=== PATIENT | female | born 1940 | race Native Hawaiian/Other Pacific Islander ===

== ENCOUNTER 2017-07-18 01:32 | Inpatient (IN) | payer MEDICARE ==
[2017-07-18 01:49] VITALS: BMI 25.0
[2017-07-18 02:14] LABS: BASO # 0.1 K/uL (0.0-0.2); BASO % 1.1 % (0.0-2.0); EOS # 0.2 K/uL (0.0-0.7); EOS % 2.1 % (0.0-4.0); HEMOGLOBIN 13.7 g/dL (12.0-16.0); LYMPH # 1.1 K/uL (1.0-4.3); LYMPH % 14.3 % (20.0-40.0); MEAN CELL VOLUME 95.1 fl (81.0-99.0); MEAN CORPUSCULAR HEMOGLOBIN 31.9 pg (27.0-31.0); MEAN CORPUSCULAR HGB CONC 33.6 g/dL (33.0-37.0); MEAN PLATELET VOLUME 8.3 fl (7.2-11.7); MONO # 0.6 K/uL (0.0-0.8); MONO % 7.3 % (0.0-10.0); NEUT # 5.8 K/uL (1.8-7.0); NEUT % 75.2 % (50.0-75.0); RBC 4.3 Mil/uL (3.80-5.20); RED CELL DISTRIBUTION WIDTH 14.3 % (11.5-14.5); WHITE BLOOD COUNT 7.7 K/uL (4.8-10.8)
[2017-07-18 02:24] LABS: ALB/GLOB RATIO 1.4 (1.0-2.1); ALBUMIN 4.6 g/dL (3.5-5.0); CALCIUM 10.2 mg/dL (8.4-10.2)
[2017-07-18 02:29] LABS: PARTIAL THROMBOPLASTIN TIME 33.1 Seconds (25.6-37.1); PROTHROMBIN TIME 10.5 Seconds (9.8-13.1)
--- NOTE | 2017-07-18 03:05 | CT ---
EXAM: CT Head Without Intravenous Contrast CLINICAL HISTORY: 77 years old, female; Pain; Headache TECHNIQUE: Axial computed tomography images of the head/brain without intravenous contrast. All CT scans at this facility use one or more dose reduction techniques, viz.: automated exposure control; ma/kV adjustment per patient size (including targeted exams where dose is matched to indication; i.e. head); or iterative reconstruction technique. Coronal and sagittal reformatted images were created and reviewed. COMPARISON: No relevant prior studies available. FINDINGS: Brain: There is mild diffuse cerebral atrophy present, consistent with this patient's age. No hemorrhage. No significant white matter disease. Ventricles: The ventricular system demonstrates mild diffuse compensatory enlargement. Bones/joints: Unremarkable. No acute fracture. Soft tissues: Unremarkable. Sinuses: There is minimal mucoperiosteal thickening in the ethmoid sinuses, consistent with chronic sinusitis. Mastoid air cells: Unremarkable as visualized. No mastoid effusion. IMPRESSION: No acute intracranial abnormality.
[2017-07-18] MEDS ORDERED: Enoxaparin 60 mg Syringe SC STA (03:13)
[2017-07-18] MEDS ORDERED: Digoxin 500 mcg/2ml (0.5 mg/2ml) Inj IVP ONE (03:34)
[2017-07-18] MEDS ORDERED: Digoxin 500 mcg/2ml (0.5 mg/2ml) Inj ONE (03:37)
[2017-07-18 03:47] VITALS: PULSE 108
--- NOTE | 2017-07-18 03:54 | ED PDOC ---
HPI: General Adult Time Seen by Provider: 07/18/17 01:35 Chief Complaint (Nursing): Dizziness/Lightheaded Chief Complaint (Provider): Dizziness/Lightheaded History Per: Patient History/Exam Limitations: no limitations Onset/Duration Of Symptoms: Other (Prior to arrival) Additional Complaint(s): 77 years old [place] female with history of hypertension and diabetes presents to the ED complaining of dizziness, nausea and vomiting prior to arrival. Patient reports she was getting ready for bed when she experienced room spinning sensation. She reports symptoms are resolved since arriving to the ED. Patient denies any chest pain, shortness of breath or cough. PMD: Sadiq Aguilera Past Medical History Reviewed: Historical Data, Nursing Documentation, Vital Signs Vital Signs: Last Vital Signs Temp 98.2 F 07/19/17 00:18 Pulse 102 H 07/19/17 03:52 Resp 18 07/19/17 00:18 BP 115/68 07/19/17 00:18 Pulse Ox 98 07/19/17 03:52 - Medical History PMH: HTN - Family History Family History: States: No Known Family Hx - Home Medications Home Medications: Ambulatory Orders Medication Instructions Recorded Amlodipine Besylate [Amlodipine 1 tab PO DAILY 01/10/14 Besylate] Atorvastatin Calcium [Atorvastatin 1 tab PO DAILY 01/10/14 Calcium] Dulaglutide [Trulicity] 1.5 mg SC QWK 07/18/17 Ergocalciferol [Drisdol 50,000 1 cap PO DAILY 07/18/17 Intl Units Cap] Metoprolol Tartrate [Lopressor] 100 mg PO BID 07/18/17 Vit B Cplx C No.13/Folic AC/D3 1 each PO DAILY 07/18/17 [Nephrocaps Qt Tablet] - Allergies Allergies/Adverse Reactions: Allergies Allergy/AdvReac Type Severity Reaction Status Date / Time No Known Allergies Allergy Verified 07/18/17 01:49 Review of Systems ROS Statement: Except As Marked, All Systems Reviewed And Found Negative Cardiovascular: Positive for: Light Headedness. Negative for: Chest Pain Respiratory: Negative for: Cough, Shortness of Breath Gastrointestinal: Positive for: Nausea, Vomiting Physical Exam - Reviewed Nursing Documentation Reviewed: Yes Vital Signs Reviewed: Yes - Physical Exam Appears: Positive for: Non-toxic, No Acute Distress Head Exam: Positive for: ATRAUMATIC, NORMOCEPHALIC Skin: Positive for: Normal Color, Warm, Dry Eye Exam: Positive for: Normal appearance, EOMI, PERRL ENT: Positive for: Normal ENT Inspection Neck: Positive for: Normal, Painless ROM, Supple Cardiovascular/Chest: Positive for: Tachycardia, Irregularly Irregular Respiratory: Positive for: Normal Breath Sounds. Negative for: Respiratory Distress Gastrointestinal/Abdominal: Positive for: Normal Exam, Soft. Negative for: Tenderness Extremity: Positive for: Normal ROM Neurologic/Psych: Positive for: Alert, Oriented - Laboratory Results Result Diagrams: 07/18/17 07:15 07/18/17 07:15 - ECG ECG Rhythm: Positive for: Atrial Fibrillation Rate: 102 O2 Sat by Pulse Oximetry: 98 (RA) Pulse Ox Interpretation: Normal - Critical Care Total Time (In Min): 30 Medical Decision Making Medical Decision Making: Time: 015 Initial Impression: 77 years old [place] female with dizziness, nausea and vomiting. Initial Plan: --CT Head w/o Contrast --EKG --CMP --CBC --PTT --PT --Chest X-Ray --NaCl 100 ml IV --Lanoxin 0.5 mg IVP --Reglan 10 mg IVPB --Toradol 10 mg IVP --Tylenol 325 mg ____ Time: [address] FINDINGS: Brain: There is mild diffuse cerebral atrophy present, consistent with this patient's age. No hemorrhage. No significant white matter disease. Ventricles: The ventricular system demonstrates mild diffuse compensatory enlargement. Bones/joints: Unremarkable. No acute fracture. Soft tissues: Unremarkable. Sinuses: There is minimal mucoperiosteal thickening in the ethmoid sinuses, consistent with chronic sinusitis. Mastoid air cells: Unremarkable as visualized. No mastoid effusion. IMPRESSION: No acute intracranial abnormality. Dictated By: Camila Rodriguez MD Dictated Date/Time: 07/18/17304 Signed By: Camila Harry MD Date Signed: 304 Transcribed By: ALLEY Transcribe Date/Time : 07/18/17304 HOLANMD/VRD Time: 332 Labs reviewed show no clinically sig abnormalities. Patient's presentation is c /w A Fib which is new onset per daughter and patient. Patient admitted as discussed with Dr. Rick who is covering Dr Aguilera Scribe Attestation: Documented by Rita Lindo, acting as a scribe for Vinicius Neumann MD. Provider Scribe Attestation: All medical record entries made by the Scribe were at my direction and personally dictated by me. I have reviewed the chart and agree that the record accurately reflects my personal performance of the history, physical exam, medical decision making, and the department course for this patient. I have also personally directed, reviewed, and agree with the discharge instructions and disposition. Disposition - Clinical Impression Clinical Impression: Atrial fibrillation with RVR - Patient ED Disposition Is Patient to be Admitted: Yes Discussed With : Maicol Rick - Disposition Disposition Time: 03:30 Condition: FAIR
[2017-07-18 08:44] LABS: BASO # 0.1 K/uL (0.0-0.2); EOS % 0.6 % (0.0-4.0); HEMOGLOBIN 13.5 g/dL (12.0-16.0); LYMPH # 1.6 K/uL (1.0-4.3); LYMPH % 23.3 % (20.0-40.0); MEAN CELL VOLUME 93.8 fl (81.0-99.0); MEAN CORPUSCULAR HEMOGLOBIN 32.3 pg (27.0-31.0); MEAN CORPUSCULAR HGB CONC 34.4 g/dL (33.0-37.0); MEAN PLATELET VOLUME 8.6 fl (7.2-11.7); MONO # 0.6 K/uL (0.0-0.8); MONO % 8.5 % (0.0-10.0); NEUT # 4.5 K/uL (1.8-7.0); NEUT % 66.6 % (50.0-75.0); RBC 4.19 Mil/uL (3.80-5.20); RED CELL DISTRIBUTION WIDTH 13.8 % (11.5-14.5); WHITE BLOOD COUNT 6.8 K/uL (4.8-10.8)
[2017-07-18] MEDS ORDERED: AMLODIPINE BESYLATE PO SCH (09:00)
[2017-07-18] MEDS ORDERED: Ergocalciferol 50,000 Intl Units Cap PO SCH ×2 (09:00→11:15)
[2017-07-18] MEDS ORDERED: Enoxaparin 40 mg Syringe SC SCH (09:00)
[2017-07-18] MEDS: Multivitamin Vitamin B Complex (Nephro-Vite) Tab PO SCH (09:01)
[2017-07-18 09:06] LABS: TROPONIN I 0.019 ng/mL (0.00-0.120)
[2017-07-18 09:10] LABS: T3 UPTAKE 35.9 % (23.0-41.0); T4 9.53 ug/dl (5.5-11.0)
[2017-07-18 09:16] LABS: ALB/GLOB RATIO 1.2 (1.0-2.1); ALBUMIN 4.1 g/dL (3.5-5.0); CALCIUM 10.1 mg/dL (8.4-10.2)
[2017-07-18 09:24] LABS: T3 0.89 nmol/L (1.49-2.60)
--- NOTE | 2017-07-18 09:45 | RAD ---
HISTORY: chest pain COMPARISON: No prior. FINDINGS: LUNGS: No active pulmonary disease. PLEURA: No significant pleural effusion identified, no pneumothorax apparent. CARDIOVASCULAR: Normal. OSSEOUS STRUCTURES: No significant abnormalities. VISUALIZED UPPER ABDOMEN: Normal. OTHER FINDINGS: None. IMPRESSION: No active disease.
--- NOTE | 2017-07-18 11:26 | CARD ---
APPROVED REPORT EKG Measurement Heart [id number] <Conclusion> Atrial fibrillation with rapid ventricular response Septal infarct, age undetermined Abnormal ECG
--- NOTE | 2017-07-18 11:33 | HP ---
CHIEF COMPLAINT: Lightheaded and dizzy. HISTORY OF PRESENT ILLNESS: This is a 77-year-old female known case of diabetes and hypertension, who was having dizziness and lightheadedness, so the patient was brought to the emergency room where the patient was found to be in new onset of atrial fibrillation, so the patient was admitted for further management. REVIEW OF SYSTEMS: Positive for lightheadedness and dizziness. Review of systems otherwise is negative for headache, loss of consciousness, chest pain, shortness of breath, nausea, vomiting, diarrhea, constipation, any new joint or extremity pain. Review of systems of all other organ system is unremarkable. PAST MEDICAL HISTORY: Significant for hypertension. PAST SURGICAL HISTORY: Unremarkable. PERSONAL HISTORY: The patient is currently nonsmoker, nondrinker. No substance abuse. MEDICATIONS: The patient is on amlodipine 10 mg once a day, atorvastatin, ergocalciferol, metoprolol, and vitamin D. ALLERGIES: THE PATIENT IS NOT ALLERGIC TO ANY MEDICATIONS. FAMILY HISTORY: Noncontributory. PHYSICAL EXAMINATION: GENERAL: A well-built, well-nourished 77-year-old female, in no acute distress. VITAL SIGNS: Temperature 98.2, pulse 93, respirations 16, and blood pressure 125/73. HEENT: Pupils reacting to light. No JVD. No thyromegaly. No lymphadenopathy. No nystagmus. Normocephalic, atraumatic skull. HEART: S1 and S2, normal and regular. No significant murmur, gallop or rub is heard. LUNGS: Show good bilateral air exchange. No rales or rhonchi. ABDOMEN: Soft and nontender. No organomegaly. No fluid. Bowel sounds are plus and normal. EXTREMITIES: No edema. No calf swelling. No tenderness. No acute ischemia. CENTRAL NERVOUS SYSTEM: Essentially unchanged. There is no sign of any acute gross focal motor or sensory neurological deficit. DIAGNOSTIC DATA: Available diagnostic data reviewed. Telemetry monitoring does not reveal significant arrhythmias. WBC 6.8, hemoglobin 13.5, hematocrit 39.3, and platelets 174,000. PT 10.5, PTT 33.1, and INR is 1. Sodium 140, potassium 4.7, chloride 100, bicarbonate 28, BUN 29, and creatinine 1.4. SMA-12 shows AST and ALT are 67 and 84, which were before 84 and 93 yesterday. Vitamin B12 level and thyroid TSH is unremarkable. SMA-12 otherwise is unremarkable. CAT scan of head does not reveal any acute CVA or hemorrhage. Chest x-ray is clear. EKG showed atrial fibrillation with mildly elevated heart rate. Telemetry monitoring does also atrial fibrillation with occasional episodes of tachycardia. Echocardiogram exam is done, but report is pending. ADMITTING IMPRESSION: New onset of atrial fibrillation, hypertension, and diabetes. PLAN: As ordered. Case and plan discussed with the patient. Maicol Rick MD
[2017-07-19 07:02] LABS: HEMOGLOBIN 13.5 g/dL (12.0-16.0); MEAN CELL VOLUME 94.2 fl (81.0-99.0); MEAN CORPUSCULAR HEMOGLOBIN 31.6 pg (27.0-31.0); MEAN CORPUSCULAR HGB CONC 33.5 g/dL (33.0-37.0); RBC 4.29 Mil/uL (3.80-5.20); RED CELL DISTRIBUTION WIDTH 14.3 % (11.5-14.5); WHITE BLOOD COUNT 5.1 K/uL (4.8-10.8)
[2017-07-19] MEDS: Multivitamin Vitamin B Complex (Nephro-Vite) Tab PO SCH (08:43)
[2017-07-19 08:57] LABS: ALB/GLOB RATIO 1.2 (1.0-2.1); CALCIUM 9.3 mg/dL (8.4-10.2)
[2017-07-19] MEDS ORDERED: Enoxaparin 40 mg Syringe SC SCH (09:00)
--- NOTE | 2017-07-19 11:10 | CARD ---
APPROVED REPORT EXAM: Two-dimensional and M-mode echocardiogram with Doppler and color Doppler. Other Information Quality : GoodRhythm : Atrial Fibrillation INDICATION Atrial Fibrillation 2D DIMENSIONS IVSd1.28 (0.7-1.1cm)LVDd3.47 (3.9-5.9cm) LVOT Diameter2.21 (1.8-2.4cm)PWd1.59 (0.7-1.1cm) IVSs1.72 (0.8-1.2cm)LVDs2.13 (2.5-4.0cm) FS (%) 38.8 %PWs1.72 (0.8-1.2cm) M-Mode DIMENSIONS Left Atrium (MM)5.88 (2.5-4.0cm)IVSd1.41 (0.7-1.1cm) Aortic Root3.56 (2.2-3.7cm)LVDd4.41 (4.0-5.6cm) Aortic Cusp Exc.2.22 (1.5-2.0cm)PWd1.00 (0.7-1.1cm) IVSs1.78 cmFS (%) 45 % LVDs2.44 (2.0-3.8cm)PWs1.34 cm Mitral Valve E/A ratio0.0 TDI E/Lateral E'0.0E/Medial E'0.0 Pulmonary Valve PV Peak Bvnoukzi53.9cm/s Tricuspid Valve TR Peak [id number] [id number] Peak Gr.32mmHg [id number] LEFT VENTRICLE The left ventricle is normal size. There is mild concentric left ventricular hypertrophy. The left ventricular function is normal. The left ventricular ejection fraction is within the normal range. The Ejection Fraction is 65-70%. There is normal LV segmental wall motion. The left ventricular diastolic function is normal. RIGHT VENTRICLE The right ventricle is normal size. The right ventricular systolic function is normal. ATRIA The left atrium is mildly dilated. The right atrium size is normal. AORTIC VALVE The aortic valve is normal in structure. No aortic regurgitation is present. There is no aortic valvular stenosis. MITRAL VALVE The mitral valve is normal in structure. There is no mitral valve stenosis. Mitral regurgitation is mild. TRICUSPID VALVE The tricuspid valve is normal in structure. There is no tricuspid valve regurgitation noted. There is no tricuspid valve stenosis. PULMONIC VALVE The pulmonary valve is normal in structure. There is no pulmonic valvular regurgitation. GREAT VESSELS The aortic root is normal in size. The IVC is normal in size and collapses >50% with inspiration. PERICARDIAL EFFUSION The pericardium appears normal. <Conclusion> The left ventricle is normal size. There is mild concentric left ventricular hypertrophy. The left ventricular function is normal. The left ventricular ejection fraction is within the normal range. The Ejection Fraction is 65-70%. The left atrium is mildly dilated. Mitral regurgitation is mild.
--- NOTE | 2017-07-19 15:05 | CP.PCM.CON ---
History of Present Illness - History of Present Illness History of Present Illness: Consultation for evaluation of new onset atrial fibrillation HPI: 77-year-old [place] female with past medical history significant for hypertension diabetes mellitus presented to the ED with complains of dizziness nausea vomiting a day prior to presentation according to the patient she started feeling that the room is spinning and she is getting dizzy she was seen by Dr. Candida Doyle for her cardiovascular evaluation last month and was told she has stable cardiac status on presentation to the emergency room she was noted to be in atrial fibrillation which apparently is new in onset and therefore she was admitted she also was noted to be mild renal insufficiency with a creatinine of 1.4 CT head without contrast was ordered she was given digoxin along with the Reglan and Toradol and Tylenol in the emergency room. Review of Systems - Review of Systems Systems not reviewed;Unavailable: Acuity of Condition - Constitutional Constitutional: As Per HPI - EENT Eyes: As Per HPI Ears: As Per HPI Nose/Mouth/Throat: As Per HPI - Breasts Breasts: As Per HPI - Cardiovascular Cardiovascular: As Per HPI - Respiratory Respiratory: As Per HPI - Gastrointestinal Gastrointestinal: As Per HPI - Genitourinary Genitourinary: As Per HPI - Reproductive: Female Reproductive:Female: As Per HPI - Menstruation Menstruation: As Per HPI - Musculoskeletal Musculoskeletal: As Per HPI - Integumentary Integumentary: As Per HPI - Neurological Neurological: As Per HPI - Psychiatric Psychiatric: As Per HPI - Endocrine Endocrine: As Per HPI - Hematologic/Lymphatic Hematologic: As Per HPI Past Patient History - Past Medical History & Family History Past Medical History?: Yes - Past Social History Smoking Status: Never Smoked - CARDIAC Hx Hypertension: Yes - PULMONARY Hx Respiratory Disorders: No - NEUROLOGICAL Hx Neurological Disorder: No - HEENT Hx HEENT Problems: No - RENAL Hx Chronic Kidney Disease: No - ENDOCRINE/METABOLIC Hx Endocrine Disorders: Yes - HEMATOLOGICAL/ONCOLOGICAL Hx Blood Disorders: No - INTEGUMENTARY Hx Dermatological Problems: No - MUSCULOSKELETAL/RHEUMATOLOGICAL Hx Musculoskeletal Disorders: No Hx Falls: No - GASTROINTESTINAL Hx Gastrointestinal Disorders: No - GENITOURINARY/GYNECOLOGICAL Hx Genitourinary Disorders: No - PSYCHIATRIC Hx Psychophysiologic Disorder: No Hx Substance Use: No - SURGICAL HISTORY Hx Surgeries: No - ANESTHESIA Hx Anesthesia: No Meds Allergies/Adverse Reactions: Allergies Allergy/AdvReac Type Severity Reaction Status Date / Time No Known Allergies Allergy Verified 07/18/17 01:49 - Medications Medications: Current Medications Amlodipine Besylate (Norvasc) 10 mg PO DAILY [facility] Last Admin: 07/19/17 08:44 Dose: 10 mg Apixaban (Eliquis) 2.5 mg PO BID [facility] PRN Reason: Protocol Last Admin: 07/19/17 08:42 Dose: 2.5 mg Ergocalciferol (Drisdol 50,000 Intl Units Cap) 1 cap PO Q7D [facility] Last Admin: 07/18/17 13:02 Dose: 1 cap Home Med (Atorvastatin Calcium [Atorvastatin Calcium]) 1 tab PO DAILY [facility] Home Med (Dulaglutide [Trulicity]) 1.5 mg SC QWK [facility] Last Admin: 07/18/17 20:10 Dose: 1.5 mg Metoprolol Tartrate (Lopressor) 100 mg PO BID [facility] Last Admin: 07/19/17 08:43 Dose: 100 mg Vitamin B Complex/Vit C/Folic Acid (Nephro-Chris) 1 tab PO DAILY [facility] Last Admin: 07/19/17 08:43 Dose: 1 tab Physical Exam - Constitutional Appears: Well - Head Exam Head Exam: ATRAUMATIC, NORMAL INSPECTION, NORMOCEPHALIC - Eye Exam Eye Exam: EOMI, Normal appearance, PERRL Pupil Exam: NORMAL ACCOMODATION, PERRL - ENT Exam ENT Exam: Mucous Membranes Moist, Normal Exam - Neck Exam Neck exam: Positive for: Normal Inspection - Respiratory Exam Respiratory Exam: Clear to Auscultation Bilateral, NORMAL BREATHING PATTERN - Cardiovascular Exam Cardiovascular Exam: Irregular Rhythm, +S1, +S2, Systolic Murmur - GI/Abdominal Exam GI & Abdominal Exam: Normal Bowel Sounds, Soft. absent: Tenderness - Extremities Exam Extremities exam: Positive for: normal inspection - Back Exam Back exam: NORMAL INSPECTION - Neurological Exam Neurological exam: Alert, CN II-XII Intact, Normal Gait, Oriented x3, Reflexes Normal - Psychiatric Exam Psychiatric exam: Normal Affect, Normal Mood - Skin Skin Exam: Dry, Intact, Normal Color, Warm Results - Vital Signs Recent Vital Signs: Last Vital Signs Temp 98 F 07/19/17 11:58 Pulse 77 07/19/17 11:58 Resp 18 07/19/17 11:58 BP 128/71 07/19/17 11:58 Pulse Ox 97 05/20/18 11:58 - Labs Result Diagrams: 07/19/17 05:40 07/19/17 07:07 Labs: Laboratory Results - last 24 hr 07/18/17 07/18/17 07/18/17 15:39 15:40 21:05 WBC RBC Hgb Hct MCV MCH MCHC RDW Plt Count Sodium Potassium Chloride Carbon Dioxide Anion Gap BUN Creatinine Est GFR ( Amer) Est GFR (Non-Af Amer) POC Glucose (mg/dL) 87 97 Random Glucose Calcium Total Bilirubin AST ALT Alkaline Phosphatase Troponin I 0.0180 Total Protein Albumin Globulin Albumin/Globulin Ratio 07/19/17 07/19/17 07/19/17 05:09 05:40 05:40 WBC 5.1 RBC 4.29 Hgb 13.5 Hct 40.4 MCV 94.2 MCH 31.6 H MCHC 33.5 RDW 14.3 Plt Count 168 Sodium Potassium Chloride Carbon Dioxide Anion Gap BUN Creatinine Est GFR ( Amer) Est GFR (Non-Af Amer) POC Glucose (mg/dL) 84 Random Glucose Calcium Total Bilirubin AST ALT Alkaline Phosphatase Troponin I 0.0210 Total Protein Albumin Globulin Albumin/Globulin Ratio 07/19/17 07/19/17 07:07 10:39 WBC RBC Hgb Hct MCV MCH MCHC RDW Plt Count Sodium 140 Potassium 4.4 Chloride 100 Carbon Dioxide 27 Anion Gap 17 BUN 32 H Creatinine 1.4 H Est GFR ( Amer) 44 Est GFR (Non-Af Amer) 36 POC Glucose (mg/dL) 208 H Random Glucose 90 Calcium 9.3 Total Bilirubin 1.0 AST 51 H D ALT 72 H Alkaline Phosphatase 82 Troponin I Total Protein 7.3 Albumin 4.0 Globulin 3.3 Albumin/Globulin Ratio 1.2 Assessment & Plan (1) Atrial fibrillation with RVR Assessment and Plan: echo OAC with eliquis 2.5mg po bid BB telemetry monitoring x 24 hours CHADS-VASCs score is 3 Status: Acute (2) HTN (hypertension) Status: Acute
--- NOTE | 2017-07-19 15:13 | CP.PCM.PN ---
Subjective - Date & Time of Evaluation Date of Evaluation: 07/19/17 Time of Evaluation: 15:12 - Subjective Subjective: LFT's and Cr high TnI x 2 nl Objective - Vital Signs/Intake and Output Vital Signs (last 24 hours): Temp Pulse Resp BP Pulse Ox 98 F 77 18 128/71 97 07/19/17 11:58 07/19/17 11:58 07/19/17 11:58 07/19/17 11:58 07/19/17 11:58 - Medications Medications: Current Medications Amlodipine Besylate (Norvasc) 10 mg PO DAILY [facility] Last Admin: 07/19/17 08:44 Dose: 10 mg Apixaban (Eliquis) 2.5 mg PO BID [facility] PRN Reason: Protocol Last Admin: 07/19/17 08:42 Dose: 2.5 mg Ergocalciferol (Drisdol 50,000 Intl Units Cap) 1 cap PO Q7D [facility] Last Admin: 07/18/17 13:02 Dose: 1 cap Home Med (Atorvastatin Calcium [Atorvastatin Calcium]) 1 tab PO DAILY [facility] Home Med (Dulaglutide [Trulicity]) 1.5 mg SC QWK [facility] Last Admin: 07/18/17 20:10 Dose: 1.5 mg Metoprolol Tartrate (Lopressor) 100 mg PO BID [facility] Last Admin: 07/19/17 08:43 Dose: 100 mg Vitamin B Complex/Vit C/Folic Acid (Nephro-Chris) 1 tab PO DAILY [facility] Last Admin: 07/19/17 08:43 Dose: 1 tab - Labs Labs: 07/19/17 05:40 07/19/17 07:07 PT 10.5 Seconds (9.8-13.1) 07/18/17 02:11 INR 1.0 (0.9-1.2) 07/18/17 02:11 APTT 33.1 Seconds (25.6-37.1) 07/18/17 02:11 - Constitutional Appears: Well - Head Exam Head Exam: ATRAUMATIC, NORMAL INSPECTION, NORMOCEPHALIC - Eye Exam Eye Exam: EOMI, Normal appearance, PERRL Pupil Exam: NORMAL ACCOMODATION, PERRL - ENT Exam ENT Exam: Mucous Membranes Moist, Normal Exam - Neck Exam Neck Exam: Full ROM, Normal Inspection. absent: Lymphadenopathy - Respiratory Exam Respiratory Exam: Clear to Ausculation Bilateral, NORMAL BREATHING PATTERN - Cardiovascular Exam Cardiovascular Exam: REGULAR RHYTHM, +S1, +S2. absent: Murmur - GI/Abdominal Exam GI & Abdominal Exam: Soft, Normal Bowel Sounds. absent: Tenderness - Extremities Exam Extremities Exam: Full ROM, Normal Capillary Refill, Normal Inspection. absent : Joint Swelling, Pedal Edema - Back Exam Back Exam: NORMAL INSPECTION - Neurological Exam Neurological Exam: Alert, Awake, CN II-XII Intact, Normal Gait, Oriented x3 - Psychiatric Exam Psychiatric exam: Normal Affect, Normal Mood - Skin Skin Exam: Dry, Intact, Normal Color, Warm Assessment and Plan (1) Atrial fibrillation with RVR Status: Acute (2) HTN (hypertension) Status: Acute
[2017-07-20 06:03] LABS: HEMOGLOBIN 13.3 g/dL (12.0-16.0); MEAN CELL VOLUME 93.6 fl (81.0-99.0); MEAN CORPUSCULAR HGB CONC 34.2 g/dL (33.0-37.0); RBC 4.17 Mil/uL (3.80-5.20); RED CELL DISTRIBUTION WIDTH 14.2 % (11.5-14.5); WHITE BLOOD COUNT 7.2 K/uL (4.8-10.8)
[2017-07-20 06:06] LABS: ALB/GLOB RATIO 1.3 (1.0-2.1); ALBUMIN 3.9 g/dL (3.5-5.0); CALCIUM 9.3 mg/dL (8.4-10.2)
--- NOTE | 2017-07-20 07:20 | CP.PCM.PN ---
Subjective - Date & Time of Evaluation Date of Evaluation: 07/20/17 Time of Evaluation: 07:18 - Subjective Subjective: Cr 1.3 pt says that she had stress test in Mar at 's office which was normal HR controlled in 's Objective - Vital Signs/Intake and Output Vital Signs (last 24 hours): Temp Pulse Resp BP Pulse Ox 98.9 F 87 18 129/81 97 07/20/17 04:57 07/20/17 04:57 07/20/17 04:57 07/20/17 04:57 07/20/17 04:57 - Medications Medications: Current Medications Amlodipine Besylate (Norvasc) 10 mg PO DAILY [facility] Last Admin: 07/19/17 08:44 Dose: 10 mg Apixaban (Eliquis) 2.5 mg PO BID [facility] PRN Reason: Protocol Last Admin: 07/19/17 17:49 Dose: 2.5 mg Atorvastatin Calcium (Lipitor) 10 mg PO DAILY@2100 [facility] Ergocalciferol (Drisdol 50,000 Intl Units Cap) 1 cap PO Q7D [facility] Last Admin: 07/18/17 13:02 Dose: 1 cap Home Med (Dulaglutide [Trulicity]) 1.5 mg SC QWK [facility] Last Admin: 07/18/17 20:10 Dose: 1.5 mg Metoprolol Tartrate (Lopressor) 100 mg PO BID [facility] Last Admin: 07/19/17 17:49 Dose: 100 mg Vitamin B Complex/Vit C/Folic Acid (Nephro-Chris) 1 tab PO DAILY [facility] Last Admin: 07/19/17 08:43 Dose: 1 tab - Labs Labs: 07/20/17 04:30 07/20/17 04:30 PT 10.5 Seconds (9.8-13.1) 07/18/17 02:11 INR 1.0 (0.9-1.2) 07/18/17 02:11 APTT 33.1 Seconds (25.6-37.1) 07/18/17 02:11 - Constitutional Appears: Well - Head Exam Head Exam: ATRAUMATIC, NORMAL INSPECTION, NORMOCEPHALIC - Eye Exam Eye Exam: EOMI, Normal appearance, PERRL Pupil Exam: NORMAL ACCOMODATION, PERRL - ENT Exam ENT Exam: Mucous Membranes Moist, Normal Exam - Neck Exam Neck Exam: Full ROM, Normal Inspection. absent: Lymphadenopathy - Respiratory Exam Respiratory Exam: Clear to Ausculation Bilateral, NORMAL BREATHING PATTERN - Cardiovascular Exam Cardiovascular Exam: REGULAR RHYTHM, +S1, +S2. absent: Murmur - GI/Abdominal Exam GI & Abdominal Exam: Soft, Normal Bowel Sounds. absent: Tenderness - Extremities Exam Extremities Exam: Full ROM, Normal Capillary Refill, Normal Inspection. absent : Joint Swelling, Pedal Edema - Back Exam Back Exam: NORMAL INSPECTION - Neurological Exam Neurological Exam: Alert, Awake, CN II-XII Intact, Normal Gait, Oriented x3 - Psychiatric Exam Psychiatric exam: Normal Affect, Normal Mood - Skin Skin Exam: Dry, Intact, Normal Color, Warm Assessment and Plan (1) Atrial fibrillation with RVR Assessment & Plan: plan for KATARINA/CV cont eliquis cont bb Status: Acute (2) HTN (hypertension) Assessment & Plan: cont norvasc, bb Status: Acute
--- NOTE | 2017-07-20 08:36 | PN ---
DATE: 07/19/2017 SUBJECTIVE: The patient is seen and examined. Interim events noted. Consults are noted and appreciated. The patient feels okay. Denies any chest pain or shortness of breath. No palpitation and no dizziness. PHYSICAL EXAMINATION: GENERAL: The patient is in no acute distress. VITAL SIGNS: Stable. HEART: S1 and S2 are normal and regular. LUNGS: Good bilateral air exchange. GASTROINTESTINAL: Abdomen is soft and nontender. EXTREMITIES: No edema and no calf swelling. No tenderness. No acute ischemia. CENTRAL NERVOUS SYSTEM: Exam is essentially unchanged. DIAGNOSTIC DATA: Available diagnostic data reviewed. Telemetry monitoring does not show significant arrhythmia other than atrial fibrillation with occasional rapid ventricular rate. ASSESSMENT AND PLAN: Overall, the patient is medially stable. Plan as ordered. Maicol Rick MD
[2017-07-20] MEDS: Multivitamin Vitamin B Complex (Nephro-Vite) Tab PO SCH ×2 (10:32→11:11)
--- NOTE | 2017-07-20 10:58 | PN ---
DATE: 07/20/2017 SUBJECTIVE: The patient is seen and examined. Interim events noted. Consults noted and appreciated. Case discussed with microbiology technician. The patient is cardioversion. The patient feels okay. Denies any chest pain or shortness of breath. PHYSICAL EXAMINATION: GENERAL: The patient is in no acute distress. VITAL SIGNS: Stable. HEART: S1 and S2, irregular. LUNGS: Good bilateral air exchange. ABDOMEN: Soft and nontender. EXTREMITIES: No edema. No calf swelling. No tenderness. No acute ischemia. CENTRAL NERVOUS SYSTEM: . DIAGNOSTIC DATA: Available diagnostic data reviewed. Telemetry monitoring showed atrial fibrillation, though it is fairly controlled. ASSESSMENT AND PLAN: Overall, the patient's general medical condition is stable. The patient's case discussed with microbiology technician. The patient is for a possible cardioversion. Case and plan discussed with the patient. Maicol Rick MD
[2017-07-21 05:36] LABS: HEMOGLOBIN 13.3 g/dL (12.0-16.0); MEAN CORPUSCULAR HEMOGLOBIN 31.7 pg (27.0-31.0); MEAN CORPUSCULAR HGB CONC 33.4 g/dL (33.0-37.0); RBC 4.2 Mil/uL (3.80-5.20); RED CELL DISTRIBUTION WIDTH 13.8 % (11.5-14.5); WHITE BLOOD COUNT 6.6 K/uL (4.8-10.8)
[2017-07-21 05:47] LABS: ALB/GLOB RATIO 1.2 (1.0-2.1); CALCIUM 9.2 mg/dL (8.4-10.2)
[2017-07-21] MEDS ORDERED: Propofol 10 mg/ml Inj (20 ML) ONE (07:39)
[2017-07-21] MEDS ORDERED: Phenylephrine 10 mg/ml Inj ONE (07:39)
[2017-07-21] MEDS ORDERED: Etomidate 20 mg/10ml Inj IV ONE (07:39)
[2017-07-21] MEDS ORDERED: Succinylcholine 200 mg/10 ml Inj IV ONE (07:39)
[2017-07-21] MEDS ORDERED: ePHEDrine 50 mg/ml Inj ONE (07:42)
[2017-07-21] MEDS ORDERED: Esmolol 100 mg/10ml Inj IV ONE (07:46)
[2017-07-21] MEDS ORDERED: BENZOCAINE SPR MM ONE (07:59)
--- NOTE | 2017-07-21 08:42 | CP.PCM.PN ---
Subjective - Date & Time of Evaluation Date of Evaluation: 07/21/17 Time of Evaluation: 08:40 - Subjective Subjective: s/p KATARINA showing LA clot Objective - Vital Signs/Intake and Output Vital Signs (last 24 hours): Temp Pulse Resp BP Pulse Ox 98.4 F 81 21 142/76 99 07/21/17 07:01 07/21/17 07:01 07/21/17 07:01 07/21/17 07:01 07/21/17 07:01 - Medications Medications: Current Medications Amlodipine Besylate (Norvasc) 10 mg PO DAILY [facility] Last Admin: 07/20/17 08:57 Dose: 10 mg Apixaban (Eliquis) 2.5 mg PO BID [facility] PRN Reason: Protocol Last Admin: 07/20/17 17:31 Dose: Not Given Atorvastatin Calcium (Lipitor) 10 mg PO DAILY@2100 [facility] Last Admin: 07/20/17 21:22 Dose: 10 mg Ergocalciferol (Drisdol 50,000 Intl Units Cap) 1 cap PO Q7D [facility] Last Admin: 07/18/17 13:02 Dose: 1 cap Home Med (Dulaglutide [Trulicity]) 1.5 mg SC QWK [facility] Last Admin: 07/18/17 20:10 Dose: 1.5 mg Metoprolol Tartrate (Lopressor) 100 mg PO BID [facility] Last Admin: 07/20/17 17:33 Dose: 100 mg Vitamin B Complex/Vit C/Folic Acid (Nephro-Chris) 1 tab PO DAILY [facility] Last Admin: 07/20/17 11:11 Dose: 1 tab - Labs Labs: 07/21/17 04:20 07/21/17 04:20 PT 10.5 Seconds (9.8-13.1) 07/18/17 02:11 INR 1.0 (0.9-1.2) 07/18/17 02:11 APTT 33.1 Seconds (25.6-37.1) 07/18/17 02:11 - Constitutional Appears: Well - Head Exam Head Exam: ATRAUMATIC, NORMAL INSPECTION, NORMOCEPHALIC - Eye Exam Eye Exam: EOMI, Normal appearance, PERRL Pupil Exam: NORMAL ACCOMODATION, PERRL - ENT Exam ENT Exam: Mucous Membranes Moist, Normal Exam - Neck Exam Neck Exam: Full ROM, Normal Inspection. absent: Lymphadenopathy - Respiratory Exam Respiratory Exam: Clear to Ausculation Bilateral, NORMAL BREATHING PATTERN - Cardiovascular Exam Cardiovascular Exam: Irregular Rhythm, +S1, +S2, Murmur - GI/Abdominal Exam GI & Abdominal Exam: Soft, Normal Bowel Sounds. absent: Tenderness - Extremities Exam Extremities Exam: Full ROM, Normal Capillary Refill, Normal Inspection. absent : Joint Swelling, Pedal Edema - Back Exam Back Exam: NORMAL INSPECTION - Neurological Exam Neurological Exam: Alert, Awake, CN II-XII Intact, Normal Gait, Oriented x3 - Psychiatric Exam Psychiatric exam: Normal Affect, Normal Mood - Skin Skin Exam: Dry, Intact, Normal Color, Warm Assessment and Plan (1) Mural thrombus of left atrium Assessment & Plan: OAC repeat KATARINA/CV in 3 months Status: Acute (2) Atrial fibrillation with RVR Assessment & Plan: cont BB cont eliquis S/p KATARINA showing LA clot ( CV aborted due to LA clot ) Re-evaluate in 3 months on OAC if candidate for CV Status: Acute (3) HTN (hypertension) Status: Acute
--- NOTE | 2017-07-21 09:37 | CP.PCM.PN ---
Subjective - Date & Time of Evaluation Date of Evaluation: 07/21/17 Time of Evaluation: 07:15 - Subjective Subjective: Patient seen and examined bedside with Dr Rick in ICU S/P TTE. Patient reports feeling well after procedure. Denies chest pain, SOB, n, v, Abd pain. Left A thrombus found, no cardioversion done. Objective - Vital Signs/Intake and Output Vital Signs (last 24 hours): Temp Pulse Resp BP Pulse Ox 98.3 F 79 18 150/71 97 07/21/17 09:15 07/21/17 09:15 07/21/17 09:15 07/21/17 09:15 07/21/17 09:15 - Medications Medications: Current Medications Amlodipine Besylate (Norvasc) 10 mg PO DAILY [facility] Last Admin: 07/20/17 08:57 Dose: 10 mg Apixaban (Eliquis) 2.5 mg PO BID [facility] PRN Reason: Protocol Last Admin: 07/20/17 17:31 Dose: Not Given Atorvastatin Calcium (Lipitor) 10 mg PO DAILY@2100 [facility] Last Admin: 07/20/17 21:22 Dose: 10 mg Ergocalciferol (Drisdol 50,000 Intl Units Cap) 1 cap PO Q7D [facility] Last Admin: 07/18/17 13:02 Dose: 1 cap Home Med (Dulaglutide [Trulicity]) 1.5 mg SC QWK [facility] Last Admin: 07/18/17 20:10 Dose: 1.5 mg Metoprolol Tartrate (Lopressor) 100 mg PO BID [facility] Last Admin: 07/20/17 17:33 Dose: 100 mg Vitamin B Complex/Vit C/Folic Acid (Nephro-Chris) 1 tab PO DAILY [facility] Last Admin: 07/20/17 11:11 Dose: 1 tab - Labs Labs: 07/21/17 04:20 07/21/17 04:20 PT 10.5 Seconds (9.8-13.1) 07/18/17 02:11 INR 1.0 (0.9-1.2) 07/18/17 02:11 APTT 33.1 Seconds (25.6-37.1) 07/18/17 02:11 - Constitutional Appears: Non-toxic, No Acute Distress - Head Exam Head Exam: ATRAUMATIC, NORMOCEPHALIC - Eye Exam Eye Exam: Normal appearance - ENT Exam ENT Exam: Mucous Membranes Moist - Respiratory Exam Respiratory Exam: Clear to Ausculation Bilateral. absent: Rales, Rhonchi, Wheezes - Cardiovascular Exam Cardiovascular Exam: Irregular Rhythm, +S1, +S2 - GI/Abdominal Exam GI & Abdominal Exam: Normal Bowel Sounds. absent: Tenderness - Extremities Exam Extremities Exam: Normal Inspection. absent: Pedal Edema - Neurological Exam Neurological Exam: Alert, Awake, Oriented x3 - Psychiatric Exam Psychiatric exam: Normal Affect, Normal Mood - Skin Skin Exam: Intact Assessment and Plan - Assessment and Plan (Free Text) Plan: Assessment/Plan 1) New onset A fib with RVR - CHADS-VASCs score is 3 Flow Specialist consult appreciated: Pt s/p TTE in ICU, left A thrombus found, no CV. Reevaluate in 3 months c/w eliquis -c/w metoprolol tart 100 mg BID -Lipitor 40 mg daily 2) DM Hga1c 6.0 on 06/2017 -c/w dulagutide 3) HTN c/w home meds 4) DVT Prophylaxis -patient on eliquis
[2017-07-21] MEDS: Multivitamin Vitamin B Complex (Nephro-Vite) Tab PO SCH (13:51)
[2017-07-21 18:59] VITALS: RESP 18
[2017-07-22 05:56] LABS: ALB/GLOB RATIO 1.2 (1.0-2.1); ALBUMIN 3.9 g/dL (3.5-5.0); CALCIUM 9.1 mg/dL (8.4-10.2)
[2017-07-22] MEDS: Multivitamin Vitamin B Complex (Nephro-Vite) Tab PO SCH (08:38)
--- NOTE | 2017-07-22 11:05 | CP.PCM.PN ---
Subjective - Date & Time of Evaluation Date of Evaluation: 07/22/17 Time of Evaluation: 11:01 - Subjective Subjective: s/p KATARINA with left atrial clot eliquis dose adjusted to 5mg po bid stable to dc home Objective - Vital Signs/Intake and Output Vital Signs (last 24 hours): Temp Pulse Resp BP Pulse Ox 97.9 F 84 18 131/72 98 07/22/17 07:49 07/22/17 08:38 07/22/17 07:49 07/22/17 08:38 07/22/17 07:49 - Medications Medications: Current Medications Amlodipine Besylate (Norvasc) 10 mg PO DAILY [facility] Last Admin: 07/22/17 08:37 Dose: 10 mg Apixaban (Eliquis) 5 mg PO BID [facility] PRN Reason: Protocol Atorvastatin Calcium (Lipitor) 10 mg PO DAILY@2100 [facility] Last Admin: 07/21/17 21:38 Dose: 10 mg Ergocalciferol (Drisdol 50,000 Intl Units Cap) 1 cap PO Q7D [facility] Last Admin: 07/18/17 13:02 Dose: 1 cap Home Med (Dulaglutide [Trulicity]) 1.5 mg SC QWK [facility] Last Admin: 07/18/17 20:10 Dose: 1.5 mg Metoprolol Tartrate (Lopressor) 100 mg PO BID [facility] Last Admin: 07/22/17 08:38 Dose: 100 mg Vitamin B Complex/Vit C/Folic Acid (Nephro-Chris) 1 tab PO DAILY [facility] Last Admin: 07/22/17 08:38 Dose: 1 tab - Labs Labs: 07/21/17 04:20 07/22/17 04:20 PT 10.5 Seconds (9.8-13.1) 07/18/17 02:11 INR 1.0 (0.9-1.2) 07/18/17 02:11 APTT 33.1 Seconds (25.6-37.1) 07/18/17 02:11 - Constitutional Appears: Well - Head Exam Head Exam: ATRAUMATIC, NORMAL INSPECTION, NORMOCEPHALIC - Eye Exam Eye Exam: EOMI, Normal appearance, PERRL Pupil Exam: NORMAL ACCOMODATION, PERRL - ENT Exam ENT Exam: Mucous Membranes Moist, Normal Exam - Neck Exam Neck Exam: Full ROM, Normal Inspection. absent: Lymphadenopathy - Respiratory Exam Respiratory Exam: Clear to Ausculation Bilateral, NORMAL BREATHING PATTERN - Cardiovascular Exam Cardiovascular Exam: Irregular Rhythm, +S1, +S2, Murmur - GI/Abdominal Exam GI & Abdominal Exam: Soft, Normal Bowel Sounds. absent: Tenderness - Extremities Exam Extremities Exam: Full ROM, Normal Capillary Refill, Normal Inspection. absent : Joint Swelling, Pedal Edema - Back Exam Back Exam: NORMAL INSPECTION - Neurological Exam Neurological Exam: Alert, Awake, CN II-XII Intact, Normal Gait, Oriented x3 - Psychiatric Exam Psychiatric exam: Normal Affect, Normal Mood - Skin Skin Exam: Dry, Intact, Normal Color, Warm Assessment and Plan (1) Mural thrombus of left atrium Assessment & Plan: OAC re-evaluate with KATARINA in 3 months Status: Acute (2) Atrial fibrillation with RVR Assessment & Plan: bb eliquis 5mg po bid stable to dc home outpt f/u in 1-2 weeks Status: Acute (3) HTN (hypertension) Assessment & Plan: norvasc 10mg po daily metoprolol 100mg bid Status: Acute
[2017-07-22 11:45] VITALS: BP 115/66; PULSE 68; TEMP 98; O2SAT 97
--- NOTE | 2017-07-22 16:02 | CP.PCM.DIS ---
Provider - Provider Date of Admission: 07/18/17 03:33 Attending physician: Sadiq Aguilera MD Consults: apartment leasing agent Dr Avila Time Spent in preparation of Discharge (in minutes): 20 Hospital Course - Lab Results Lab Results: Most Recent Lab Values WBC 6.6 K/uL (4.8-10.8) 07/21/17 04:20 RBC 4.20 Mil/uL (3.80-5.20) 07/21/17 04:20 Hgb 13.3 g/dL (12.0-16.0) 07/21/17 04:20 Hct 39.9 % (34.0-47.0) 07/21/17 04:20 MCV 95.0 fl (81.0-99.0) 07/21/17 04:20 MCH 31.7 pg (27.0-31.0) H 07/21/17 04:20 MCHC 33.4 g/dL (33.0-37.0) 07/21/17 04:20 RDW 13.8 % (11.5-14.5) 07/21/17 04:20 Plt Count 162 K/uL (130-400) 07/21/17 04:20 MPV 8.6 fl (7.2-11.7) 07/18/17 07:15 Neut % (Auto) 66.6 % (50.0-75.0) 07/18/17 07:15 Lymph % (Auto) 23.3 % (20.0-40.0) 07/18/17 07:15 Bond % (Auto) 8.5 % (0.0-10.0) 07/18/17 07:15 Eos % (Auto) 0.6 % (0.0-4.0) 07/18/17 07:15 Baso % (Auto) 1.0 % (0.0-2.0) 07/18/17 07:15 Neut # (Auto) 4.5 K/uL (1.8-7.0) 07/18/17 07:15 Lymph # (Auto) 1.6 K/uL (1.0-4.3) 07/18/17 07:15 Bond # (Auto) 0.6 K/uL (0.0-0.8) 07/18/17 07:15 Eos # (Auto) 0.0 K/uL (0.0-0.7) 07/18/17 07:15 Baso # (Auto) 0.1 K/uL (0.0-0.2) 07/18/17 07:15 PT 10.5 Seconds (9.8-13.1) 07/18/17 02:11 INR 1.0 (0.9-1.2) 07/18/17 02:11 APTT 33.1 Seconds (25.6-37.1) 07/18/17 02:11 Sodium 139 mmol/l (132-148) 07/22/17 04:20 Potassium 4.3 MMOL/L (3.6-5.0) 07/22/17 04:20 Chloride 100 mmol/L (98-107) 07/22/17 04:20 Carbon Dioxide 27 mmol/L (22-30) 07/22/17 04:20 Anion Gap 16 (10-20) 07/22/17 04:20 BUN 24 mg/dl (7-17) H 07/22/17 04:20 Creatinine 1.3 mg/dl (0.7-1.2) H 07/22/17 04:20 Est GFR ( Amer) 48 07/22/17 04:20 Est GFR (Non-Af Amer) 40 07/22/17 04:20 POC Glucose (mg/dL) 100 mg/dL (65-110) 07/22/17 05:21 Random Glucose 94 mg/dL (65-105) 07/22/17 04:20 Hemoglobin A1c 6.0 % (4.2-6.5) 07/19/17 05:40 Calcium 9.1 mg/dL (8.4-10.2) 07/22/17 04:20 Total Bilirubin 1.1 mg/dl (0.2-1.3) 07/22/17 04:20 AST 41 U/L (14-36) H 07/22/17 04:20 ALT 61 U/L (9-52) H 07/22/17 04:20 Alkaline Phosphatase 70 U/L (38-126) 07/22/17 04:20 Troponin I 0.0210 ng/mL (0.00-0.120) 07/19/17 05:40 Total Protein 7.1 G/DL (6.3-8.2) 07/22/17 04:20 Albumin 3.9 g/dL (3.5-5.0) 07/22/17 04:20 Globulin 3.2 gm/dL (2.2-3.9) 07/22/17 04:20 Albumin/Globulin Ratio 1.2 (1.0-2.1) 07/22/17 04:20 Triglycerides 35 mg/DL (0-149) 07/18/17 07:15 Cholesterol 127 mg/dL (0-199) 07/18/17 07:15 LDL Cholesterol Direct 36 mg/dL (0-129) 07/18/17 07:15 HDL Cholesterol 69 MG/DL (30-70) 07/18/17 07:15 Vitamin B12 834 pg/mL (239-931) 07/18/17 07:15 Thyroxine (T4) 9.53 ug/dl (5.5-11.0) 07/18/17 07:15 Reverse T3 28 ng/dL (8-25) H 07/18/17 07:15 Total T3 0.890 nmol/L (1.49-2.60) L 07/18/17 07:15 T3 Uptake 35.9 % (23.0-41.0) 07/18/17 07:15 TSH 3rd Generation 2.33 mIU/ML (0.46-4.68) 07/18/17 07:15 - Hospital Course Hospital Course: 77 yo ,f, PMhx/o HTN, DM, admitted for new onset of Acute A fib with dizziness, nausea vomiting on presentation( Ct head normal) . EKG: A fib with RVR. Rate controlled with Metoprolol. Anticoagulation eliquis. Patient evaluated by Contact Lens Manufacturer Dr Avila. TTE showed LA thrombus. No cardioversion at this time. . Patient hemodynamically stable while on telemetry, asymptomatic. Patient seen by Dr Rick. Patient cleared by Contact Lens Manufacturer Dr avila. Patient will be discharge and will f/u in 3 months to repeat TTE. c/w metoprolol tartrate 100 bid,Norvasc 10 Lipitor, eliquis 5 m BID Diagnosis on discharge 1) New onset A fib with RVR -Acute 2) Left mural thrombus LA -Acute 2) DM -chronid 3) HTN -chronic Discharge Exam - Head Exam Head Exam: ATRAUMATIC, NORMAL INSPECTION, NORMOCEPHALIC - Eye Exam Eye Exam: Normal appearance - ENT Exam ENT Exam: Mucous Membranes Moist - Respiratory Exam Respiratory Exam: Clear to PA & Lateral. absent: Rales, Wheezes - Cardiovascular Exam Cardiovascular Exam: Irregular Rhythm, +S1, +S2 - GI/Abdominal Exam GI & Abdominal Exam: Normal Bowel Sounds, Soft. absent: Rebound, Tenderness - Extremities Exam Extremities exam: normal inspection - Neurological Exam Neurological exam: Alert, Oriented x3 - Psychiatric Exam Psychiatric exam: Normal Affect, Normal Mood - Skin Skin Exam: Intact Discharge Plan - Discharge Medications Prescriptions: amLODIPine [Norvasc] 10 mg PO DAILY #30 tab Apixaban [Eliquis] 5 mg PO BID #60 tab - Follow Up Plan Condition: FAIR Disposition: HOME/ ROUTINE Instructions: Atrial Fibrillation (DC), High Blood Pressure (DC) Additional Instructions: pt. cleared for discharge to Home today by and cont. Eliquis 5 mg po bid as per f/u with pmd and in 1-2 weeks Referrals: Vic Avila MD [Staff Provider] - Sadiq Aguilera MD [Family Provider] -
--- NOTE | 2017-08-04 10:31 | CARD ---
APPROVED REPORT EXAM: Transesophageal echocardiogram with color flow Doppler. INDICATION Atrial Fibrillation Reason For Test : Rule out cardiac source of emboli. PROCEDURE After obtaining informed consent, patient underwent transesophageal echo in the ICU/CCU. Type of Sedation : Conscious Sedation Sedation was provided by anesthesiologist. Sedation was achieved with intravenously. Transesophageal probe was inserted and advanced into esophagus without difficulty. Echo enhancement indication: R/O Septal defect. Echo enhancement agent administered: Agitated Saline The KATARINA was performed without complications. Throughout the procedure, the blood pressure, pulse oximetry, cardiac rhythm, and rate were monitored. The patient tolerated the procedure without adverse effects. Recovery from conscious sedation was uneventful and vital signs were stable. LEFT VENTRICLE The left ventricle is normal size. There is borderline to mild concentric left ventricular hypertrophy. The left ventricular function is normal. The left ventricular ejection fraction is within the normal range. The Ejection Fraction is 60-65%. There is normal LV segmental wall motion. Transmitral Doppler flow pattern is Grade I-abnormal relaxation pattern. No left ventricle thrombus noted on this study. There is no ventricular septal defect visualized. There is no left ventricular aneurysm. There is no mass noted in the left ventricle. RIGHT VENTRICLE The right ventricle is normal size. There is normal right ventricular wall thickness. The right ventricular systolic function is normal. ATRIA The left atrium is mildly dilated. There is a thrombus suspected in the left atrium. The right atrium size is normal. The interatrial septum is intact with no evidence for an atrial septal defect. AORTIC VALVE The aortic valve is normal in structure. No aortic regurgitation is present. There is no aortic valvular stenosis. There is no aortic valvular vegetation. MITRAL VALVE The mitral valve is normal in structure. There is no evidence of mitral valve prolapse. There is no mitral valve stenosis. Mitral regurgitation is mild. TRICUSPID VALVE The tricuspid valve is normal in structure. There is trace to mild tricuspid regurgitation. There is no tricuspid valve prolapse or vegetation. There is no tricuspid valve stenosis. PULMONIC VALVE The pulmonary valve is normal in structure. There is no pulmonic valvular regurgitation. There is no pulmonic valvular stenosis. GREAT VESSELS The aortic root is normal in size. The ascending aorta is normal in size. The pulmonary artery is normal. The IVC is normal in size and collapses >50% with inspiration. PERICARDIAL EFFUSION The pericardium appears normal. There is no pleural effusion. <Conclusion> The left atrium is mildly dilated. There is a thrombus suspected in the left atrium. The left ventricular function is normal. The left ventricular ejection fraction is within the normal range. The Ejection Fraction is 60-65%. Transmitral Doppler flow pattern is Grade I-abnormal relaxation pattern.
== END 2017-07-22 16:33 | disposition home or self-care (01) | DRG 310 ==
LOC: H.ER 01:32 → H.ERHOLD 03:33 → H.TEL 05:01 → H.ICU/CCU 07-21 06:58 → H.TEL 07-21 09:29
PROVIDERS: ADMIT Family Medicine; ATTEND Family Medicine
PROC: B246ZZ4 Ultrasonography of Right and Left Heart, Transesophageal (ICD-10-PCS; principal; 2017-07-20)
DX: I48.91 Unspecified atrial fibrillation (principal); E11.9 Type 2 diabetes mellitus without complications; I10 Essential (primary) hypertension; I51.3 Intracardiac thrombosis, not elsewhere classified; J32.2 Chronic ethmoidal sinusitis